=== PATIENT | male | born 1970 | race Caucasian/White ===

== ENCOUNTER 2017-07-22 08:20 | Emergency (ER) | payer OTHER ==
--- NOTE | 2017-07-22 08:27 | PDOC ---
History of Present Illness - General Chief Complaint: Pain, Acute Stated Complaint: SORE THROAT Time Seen by Provider: 07/22/17 08:25 - History of Present Illness Initial Comments: 07/22/17 09:00 47-year-old male with a history of GERD presents with sore throat and difficulty swallowing for 2 days. Reports he only been able to eat soup over the last 24 hours due to the difficulty swallowing as well as the pain. He reports similar symptoms in the past after an esophageal injury. Denies cough. Denies fevers, chills. Denies nausea, vomiting.Denies chest pain or shortness of breath. Past History - Past Medical History Allergies/Adverse Reactions: Allergies Allergy/AdvReac Type Severity Reaction Status Date / Time No Known Allergies Allergy Unverified 12/24/15 16:39 Home Medications: Ambulatory Orders NK [No Known Home Medication] 07/22/17 - Surgical History Abdominal Surgery: Yes (HERNIA REPAIR) - Immunization History Immunization Up to Date: Yes - Suicide/Smoking/Psychosocial Hx Smoking History: Never smoked Have you smoked in the past 12 months: No Hx Alcohol Use: No Drug/Substance Use Hx: No Substance Use Type: None Review of Systems - Review of Systems Comments:: 07/22/17 09:04 GENERAL/CONSTITUTIONAL: No fever or chills. No weakness. HEAD, EYES, EARS, NOSE AND THROAT: No change in vision. No ear pain or discharge. +sore throat, +difficulty swallowing GASTROINTESTINAL: No nausea, vomiting, diarrhea or constipation. GENITOURINARY: No dysuria, frequency, or change in urination. CARDIOVASCULAR: No chest pain or shortness of breath. RESPIRATORY: No cough, wheezing, or hemoptysis. MUSCULOSKELETAL: No joint or muscle swelling or pain. No neck or back pain. SKIN: No rash NEUROLOGIC: No headache, vertigo, loss of consciousness, or change in strength/ sensation. ENDOCRINE: No increased thirst. No abnormal weight change. HEMATOLOGIC/LYMPHATIC: No anemia, easy bleeding, or history of blood clots. ALLERGIC/IMMUNOLOGIC: No hives or skin allergy. *Physical Exam - Physical Exam Comments: 07/22/17 09:06 GENERAL: Awake, alert, and fully oriented, in no acute distress HEAD: No signs of trauma EYES: PERRLA, EOMI, sclera anicteric, conjunctiva clear ENT: B/l ears with no effusion, bulging. Normal light reflex b/l. Nares patent, oropharynx with some erythema. +cobble stoning and exudate on lateral right uvula NECK: Normal ROM, supple, +cervical LAD LUNGS: Breath sounds equal, clear to auscultation bilaterally. No wheezes, and no crackles HEART: Regular rate and rhythm, normal S1 and S2, no murmurs, rubs or gallops ABDOMEN: Soft, nontender, normoactive bowel sounds. No guarding, no rebound. No masses EXTREMITIES: Normal range of motion, no edema. No clubbing or cyanosis. No cords, erythema, or tenderness NEUROLOGICAL: Normal speech, cranial nerves intact, normal gait SKIN: Warm, Dry, normal turgor, no rashes or lesions noted. Medical Decision Making - Medical Decision Making 07/22/17 09:08 47-year-old male with a history of GERD presents with sore throat and difficulty swallowing. Vitals remarkable for elevated blood pressure however the patient reports he tends to have higher blood pressure went in medical facilities, however his blood pressure home is typically in the 130s over 80s. Differential includes strep pharyngitis versus viral pharyngitis versus retropharyngeal abscess given difficulty swallowing, however the patient denies fevers and chills and does not appear toxic. Given the patient's difficulty swallowing, I spoke with Dr. Luz's office and scheduled an appointment with ENT for him to be scoped at 10:30a. Will check a rapid strep and reassess. The patient took Aleve this morning for pain and declines medication for now. 07/22/17 09:15 Rapid strep negative. Discussed the plan with Dr. Eduardo to follow up with Dr. Devi at 10:30a. I discussed the physical exam findings, ancillary test results and final diagnoses with the patient. I answered all of the patient's questions. The patient was satisfied with the care received and felt comfortable with the discharge plan and treatment plan. The patient will call their primary care physician within 24 hours to arrange follow-up and will return to the Emergency Department with any new, persistent or worsening symptoms. *DC/Admit/Observation/Transfer Diagnosis at time of Disposition: Sore throat - Discharge Dispostion Disposition: HOME Condition at time of disposition: Stable Admit: No - Referrals - Patient Instructions Printed Discharge Instructions: Sore Throat Additional Instructions: Follow-up with Dr. Luz for a scope at 10:30 AM. Follow-up with your primary care doctor as scheduled. Return to the emergency department if you have any new , worsening or concerning symptoms. - Post Discharge Activity - Attestations Physician Attestion: 07/22/17 09:17 I, Dr. Nabeel Marcos MD, attest that this document has been prepared under my direction and personally reviewed by me in its entirety. I further attest, that it accurately reflects all work, treatment, procedures and medical decision -making performed by me.
[2017-07-22 08:33] VITALS: BP 161/110; PULSE 73; TEMP 98.7; BMI 26.5
== END 2017-07-22 09:33 | disposition home or self-care (01) ==
LOC: FER 08:20
DX: J02.9 Acute pharyngitis, unspecified (principal); K21.9 Gastro-esophageal reflux disease without esophagitis
CPT/HCPCS: 87070; 87430; 99281-25